=== PATIENT | male | born 1975 | race African-American/Black ===

== ENCOUNTER 2024-01-09 01:09 | Day surgery (SDC) | payer OTHER, SELFPAY ==
[2023-12-21 13:58] VITALS: BMI 28.8
[2024-01-09 10:30] VITALS: BP 114/79; PULSE 84; RESP 19; TEMP 36.2; O2SAT 100
[2024-01-09] MEDS: LACTATED RINGERS 1,000 ML 150 ML IV CONT (10:40)
--- NOTE | 2024-01-09 11:00 | PM.HPGS ---
History of Present Illness History of Present Illness Consent: Risks, benefits, and alternatives have been discussed and questions answered. Patient agrees to proceed with procedure. Chief complaint: neoplasm screening Narrative: Casey Rice is a 48 year old male here for screening colonoscopy, had one in his 20's for blood in stools. Review of Systems Review of Systems: All systems reviewed & are unremarkable except as noted in HPI and below PMFSH Past Medical History Medical History (Updated 01/09/24 @ 11:01 by Howie Johnson MD) Colon cancer screening Social History Social History Living arrangements: with family Spiritual care concerns: No Meds Home Medications and Allergies Home Medications Medication Instructions Recorded Confirmed Type atorvastatin 10 mg tablet 10 mg PO DAILY 12/21/23 01/09/24 History Allergies Allergy/AdvReac Type Severity Reaction Status Date / Time No Known Allergies Allergy Verified 01/09/24 10:28 Vital Signs Vital Signs - 24 hr 01/09/24 10:30 Temperature 97.1 F L Pulse Rate 84 Respiratory Rate 19 Blood Pressure 114/79 Pulse Oximetry 100 Oxygen Delivery Room Air Exam Const: General: comfortable and no acute distress HENMT: Face/Nose/Sinus: Normal nares present Eyes: General: appearance normal, both eyes and all related structures Neck: Neck: no JVD Resp: Auscultation: clear to auscultation bilaterally Cardio: Rate: regular rate Rhythm: regular rhythm GI: Inspection: non-distended GI Palp: Yes Soft to palpation Skin: General skin exam: normal color Neuro: General: gait normal Speech: normal speech Extrem: General: normal to inspection Psych: Mental Status: mental status grossly normal Assessment and Plan Assessment and plan (1) Colon cancer screening: Code(s): Z12.11 - Encounter for screening for malignant neoplasm of colon Status: Acute Assessment and Plan: colonoscopy
--- NOTE | 2024-01-09 11:02 | WPDANESEPPF ---
Anes - Initial Pre Proc Eval Procedure: Operation Date: 01/09/24 11:30 Proposed Procedures p Screening Colonoscopy - Howie Johnson MD Date/Time: 01/09/24 11:02 Surgeon: Howie Johnson MD Pre Op Diagnosis: neoplasm screening Patient Data Age: 48 Gender: M Height: 1.88 m Weight: 100.7 kg Last Vital Signs Temp 36.2 C L 01/09/24 10:30 Pulse 84 01/09/24 10:30 Resp 19 01/09/24 10:30 BP 114/79 01/09/24 10:30 Pulse Ox 100 01/09/24 10:30 O2 Del Method Room Air 01/09/24 10:30 Allergies Allergy/AdvReac Type Severity Reaction Status Date / Time No Known Allergies Allergy Verified 01/09/24 10:28 Home Medications Medication Instructions Recorded Confirmed Type atorvastatin 10 mg tablet 10 mg PO DAILY 12/21/23 01/09/24 History Patient hx anesthesia problems: none Family hx anesthesia problems: none Results Review: All pre-operative results and documents have been reviewed as part of the pre-operative evaluation. [facility] Past Medical History Medical History Colon cancer screening Social History Social History Living arrangements: with family Spiritual care concerns: No Anes - Eval Final PreProcedure Day of Procedure 01/09/24 11:02 Patient weight: overweight Heart: regular rate and rhythm Lungs: clear to auscultation Airway: Mallampati scale class II Neurological: alert and oriented Last oral intake: >/= 8 hours ASA classification: II Emergent: no Anesthetic plan: proceed Anesthesia type and monitoring: general GIVS and standard monitoring Results Review: All pre-operative results and documents have been reviewed as part of the pre-operative evaluation. Informed Consent: The patient's anesthetic plan and its attendant risks and benefits were discussed with the patient/family/POA. Questions were solicited and answers provided to the satisfaction of the patient/family/POA.
[2024-01-09 11:19] VITALS: BP 103/67; PULSE 79; RESP 15; O2SAT 97
[2024-01-09 11:29] VITALS: BP 106/66; PULSE 75; RESP 16; O2SAT 97
[2024-01-09 11:39] VITALS: BP 108/79; PULSE 75; RESP 18; O2SAT 100
== END 2024-01-09 11:55 | disposition home or self-care (01) ==
PROVIDERS: Visit Provider Internal Medicine Gastroenterology
PROC: 0DJD8ZZ Inspection of Lower Intestinal Tract, Via Natural or Artificial Opening Endoscopic (ICD-10-PCS; CPT 45378; principal; 2024-01-09 11:30)
DX: Z12.11 Encounter for screening for malignant neoplasm of colon (principal); K64.8 Other hemorrhoids; K57.30 Diverticulosis of large intestine without perforation or abscess without bleeding
CPT/HCPCS: 45378; J2704; J7120

== ENCOUNTER 2024-05-03 07:06 | Emergency (ER) | payer OTHER, SELFPAY ==
--- NOTE | ~2024-05-03 | XR_ITS ---
XR foot LT min 3V 05/03/2024 08:01 Indication: Left foot pain Procedure: 4 views left foot Comparison: No prior studies for comparison. Findings: There are small degenerative calcaneal enthesophytes. Lisfranc joint intact. No fracture, s ubluxation or dislocation. No focal soft tissue abnormality. Impression: 1: No acute fracture. Reviewed, dictated and finalized at location A. UCTION ANALYST Impression: 1: No acute fracture.
[2024-05-03 07:17] VITALS: BP 151/89; PULSE 81; RESP 16; TEMP 36.6; O2SAT 97
--- NOTE | 2024-05-03 07:46 | ED.GENADULT ---
HPI - General Adult General Chief complaint: Extremity Injury, Lower Stated complaint: left foot pain Time Seen by Provider: 05/03/24 07:08 History of Present Illness HPI narrative: 49-year-old male presenting to the emergency department for evaluation for left foot pain. 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 Patient states he did have off last week but when he started working again on Tuesday and Tuesday he had worsening left lateral foot pain. Patient describes pain that is worsened with ambulation. Related Data Home Medications ?Medication ?Instructions ?Recorded ?Confirmed ?Last Taken ?Type atorvastatin 10 mg tablet 10 mg PO DAILY 12/21/23 01/09/24 01/08/24 History Allergies Allergy/AdvReac Type Severity Reaction Status Date / Time No Known Allergies Allergy Verified 05/03/24 07:23 Review of Systems Review of Systems: All systems reviewed & are unremarkable except as noted in HPI and below PMFSH Past Medical History Medical History Colon cancer screening Social History Social History Living arrangements: with family Spiritual care concerns: No Exam Narrative: APPEARANCE: Well appearing, no pain, no distress, well-nourished. HEAD: normocephalic, atraumatic. EYES: PERRLA/EOMI, conjunctivae clear. NOSE: Normal no drainage EARS:TMS clear with good light reflex. THROAT: Pharynx clear, no exudate. NECK: Supple. No adenopathy, no masses. RESPIRATORY: Airway patent, respirations nonlabored. Clear to auscultation bilaterally, no rales, rhonchi, wheezing. CARDIOVASCULAR: Regular rate and rhythm without murmurs rubs or gallops. ABDOMINAL: Soft, nontender, nondistended, normal bowel sounds MUSCULOSKELETAL: Left lateral tenderness to palpation of foot NEURO: Alert. Cranial nerves II through XII intact. Good gait. Good coordination SKIN: Warm, dry. Normal Color Course Vital Signs Vital signs: Vital Signs Temperature 97.8 F 05/03/24 07:17 Pulse Rate 81 05/03/24 07:17 Respiratory Rate 16 05/03/24 07:17 Blood Pressure 151/89 H 05/03/24 07:17 Pulse Oximetry 97 05/03/24 07:17 Oxygen Delivery Room Air 05/03/24 07:17 Temperature 97.8 F 05/03/24 07:17 Pulse Rate 73 05/03/24 09:15 Respiratory Rate 16 05/03/24 09:15 Blood Pressure 146/92 H 05/03/24 09:15 Pulse Oximetry 100 05/03/24 09:15 Oxygen Delivery Room Air 05/03/24 07:17 Medical Decision Making MDM Narrative Medical decision making narrative: 49-year-old male presenting to the emergency department for evaluation for left lateral foot pain. X-rays were negative for acute fracture dislocation. Patient's pain has been persistent. Patient will be provided Ramón wrap and crutches for limited weight-bearing. Patient was requesting a work note. Patient will have follow-up with primary care physician for additional outpatient imaging. All questions concerns were addressed. Differential Diagnosis Differential Diagnosis: Foot contusion, metatarsal fracture, ligament strain, foot sprain Vital Signs Vital Signs: Vital Signs Temperature 97.8 F 05/03/24 07:17 Pulse Rate 81 05/03/24 07:17 Respiratory Rate 16 05/03/24 07:17 Blood Pressure 151/89 H 05/03/24 07:17 Pulse Oximetry 97 05/03/24 07:17 Oxygen Delivery Room Air 05/03/24 07:17 Temperature 97.8 F 05/03/24 07:17 Pulse Rate 73 05/03/24 09:15 Respiratory Rate 16 05/03/24 09:15 Blood Pressure 146/92 H 05/03/24 09:15 Pulse Oximetry 100 05/03/24 09:15 Oxygen Delivery Room Air 05/03/24 07:17 Imaging Data Radiologist's impression: Impressions Foot X-Ray 05/03/24 08:01 Impression: 1: No acute fracture. Discharge Plan Discharge Clinical Impression: Acute foot pain Patient Disposition: Home, Self-Care Condition: Stable Instructions: Antibiotic Form, Crutch Instructions (ED), Arthralgia (ED) Additional Instructions: Ramón wrap for comfort, crutches for limited weight-bearing. Have close follow-up with Podiatry. Have close follow-up with your primary care physician for additional outpatient imaging. Patient Language: Kiswahili Prescriptions: No Action atorvastatin 10 mg tablet 10 mg PO DAILY Follow-up/Referrals: Arango,Lee Jr., DPM [Physician] - PHYSICIAN,SOFT BOARDER [Non-Staff] - Stand Alone Forms: Work/School Release IP
--- OUTSIDE RECORDS SUMMARY | 2024-05-03 08:49 | XMS_ITS | Patient Health Summary ---
Author Organization [facility] [employer] Address [address] [place] [address] Care Team Providers Care Charge Histotechnologist Name Role Phone Zoila Hurt MD Primary Care Provider [phone] Note from [facility],non-owned Affiliates and Associated Physician Practices is amultiple site organization consisting of ambulatory clinics and hospital sitesin [place], [place], [place] and [place]. This disclosure is being madepursuant to the Care Everywhere program and may not contain all information available regarding this patient. Last updated 17.[facility] Allergies No known active allergies Medications * Be aware that medications may not be up to date on this document. Alwaysverify current medications with the patient. * diazePAM (VALIUM) 5 MG tablet(Started 12/25/2019) Take 5 mg by mouth 2 times daily * ibuprofen (MOTRIN) 600 MG tablet(Started 12/25/2019) Take 600 mg by mouth every 6 hours as needed pain Social History Tobacco Use Types Packs/Day Years Used Date Smoking Tobacco: Never Smokeless Tobacco: Never Alcohol Use Standard Drinks/Week Comments No 0 (1 standard drink = 0.6 oz pur e alcohol) Sex and Gender Information Value Date Recorded Sex Assigned at Not on file Gender Identity Not on file Sexual Orientation Not on file Last Filed Vital Signs Vital Sign Reading Time Taken Comments Blood Pressure 129/83 02/13/2020 10:22 AM BUSINESS LAW INSTRUCTOR Pulse 73 02/13/2020 10:22 AM BUSINESS LAW INSTRUCTOR Temperature 36.9 ??C (98.5 ??F) 02/13/2020 10:[address] Respiratory Rate 18 02/13/2020 10:22 AM BUSINESS LAW INSTRUCTOR Oxygen Saturation 100% 02/13/2020 10:22 AM BUSINESS LAW INSTRUCTOR Inhaled Oxygen Concentration - - Weight 104.3 kg (230 lb) 02/13/2020 10:22 AM BUSINESS LAW INSTRUCTOR Height 188 cm (6' 2 ) 11/30/2014 5:01 PM CDT Body Mass Index 29.53 11/30/2014 5:01 PM CDT Procedures * DERMATOPATHOLOGY(Performed 05/05/2022) Performed for Neoplasm of uncertain behavior of skin * COVID-19 SARS-COV-2 PCR QUAL ([facility])(Performed 02/13/2020) Performed for Close exposure to COVID-19 virus * BASIC METABOLIC PANEL (CALCIUM TOTAL)(Performed 11/30/2014) * CBC W AUTO DIFFERENTIAL(Performed 11/30/2014) * CULTURE STREP GROUP A(Performed 11/30/2014) * STREP A SCREEN DIRECT W RFLX STREP A CULTURE(Performed 11/30/2014) Results * DERMATOPATHOLOGY (05/05/2022 12:00 AM BUSINESS LAW INSTRUCTOR) Case Report Dermatopathology Report ? Case: [id number] ? Authorizing Provider: ??Cooper Siegel, ? Collected: ? 05/05/2022 12:00 AM ? PA-Gem ? Ordering Location: ? [facility] Care DermPath Lab ?Received: ?05/05/2022 04:08 PM ? Pathologist: ? Shira Choi MD ? Specimen: ?Skin, right eyelid: Triangulation: just inferior to R eye lateral canthus ? 5:38 PM [facility] D[facility]MAT[facility] Final Diagnosis Specimen A. 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 Hidrocystoma 5:38 PM [facility]MAT[facility] Gross Description Specimen A: Received is one formalin filled container labeled with the patient's name and designated right eyelid: Triangulation: just inferior to R eye lateral canthus. The specimen consists of a shave biopsy measuring [id number]. Jar 0. 5:38 PM [facility]ERMATOPATH[facility] Microscopic Description Specimen A. SKIN, right eyelid: Triangulation: just inferior to R eye lateral canthus: Within the dermis, there is a space lined by one to several layers of typical epithelial cells that resemble the lining of the normal sweat duct. Additional deeper sections were obtained and reviewed. 5:38 PM [facility] Disclaimer An external and internal positive and negative controls are appropriate for the histochemical, immunohistochemical and immunofluorescence stain(s) in this case (if any), except where stated explicitly. The performance characteristics of the stain(s) cited in this report were developed and its performance characteristic determined by the Dermatopathology Laboratory at [facility], directed by Dr. Pete Zelaya. These tests need not be, and therefore are not, approved by the [place] Food and Drug Administration. The tests are used for clinical purposes. Billing Codes Specimen Charges Stain Charges 65684 1 5:38 PM [facility] Embedded Images 5:38 PM [facility] Pathology/Cytolog y TISSUE SPECIMEN FROM SKIN / Unknown 05/05/2022 05/05/2022 4:08 PM BUSINESS LAW INSTRUCTOR Cooper Siegel PA-C LAB - PATHOLOG Y/CYTOLOGY ORDERABLES DERMATOPATHOLOGY LABORATORY [facility] Department of Dermatology [address], [address] [phone] * COVID-19 SARS-COV-2 PCR QUAL ([facility]) (02/13/2020 12:00 AM BUSINESS LAW INSTRUCTOR) SARS-CoV-2 SARITHA Not Detected Not Detected [facility] ACCOUNT BILL Comment: This nucleic acid amplification test was developed and its performance characteristics determined by [facility]. Nucleic acid amplification tests include PCR and TMA. This test has not been FDA cleared or approved. This test has been authorized by FDA under an Emergency Use Authorization (EUA). This test is only authorized for the duration of time the declaration that circumstances exist justifying the authorization of the emergency use of in vitro diagnostic tests for detection of SARS-CoV-2 virus and/or diagnosis of COVID-19 infection under section 564(b)(1) of the Act, 21 U.S.C. 360bbb-3(b) (1), unless the authorization is terminated or revoked sooner. When diagnostic testing is negative, the possibility of a false negative result should be considered in the context of a patient's recent exposures and the presence of clinical signs and symptoms consistent with COVID-19. An individual without symptoms of COVID-19 and who is not shedding SARS-CoV-2 virus would expect to have a negative (not detected) result in this assay. Microbiology SPECIMEN FROM NASOPHARYNGEAL STRUCTURE / Unknown 02/13/2020 02/13/2020 Narrative Resulting Agency Comment Lab Testing performed at: [facility] [address] [id number] [place] [employer] LAB - MICROBIOL OGY ORDERABLES [facility] ACCOUNT BILL [address] [place] [address] * STREP A SCREEN DIRECT W RFLX STREP A CULTURE (11/30/2014 5:28 PM CDT) Pathologist [facility] Strep A Rapid Negative Negative 11/30/2014 5:43 PM CDT [facility] Microbiology ENTIRE THROAT (SURFACE REGION OF NECK) / Unknown Collection / Unknown 11/30/2014 5:28 PM CDT 11/30/2014 5:33 PM CDT Narrative [facility] - 11/30/2014 5:43 PM CDT Test has reflexed to a Strep A culture. Adelita Rader [facility] - MICROBIOLOGY ORDERABLES Performing Organization Address City/[facility]/ZIP Co de Phone Number [facility] [address] [place] [address] * CULTURE STREP GROUP A (11/30/2014 5:28 PM CDT) [facility] Culture Negative for Beta Hemolytic Streptococcus Group A AL 12/02/2014 4:03 AM CDT [facility] MICROBIOLOGY Microbiology ENTIRE THROAT (SURFACE REGION OF NECK) / Unknown Collection / Unknown 11/30/2014 5:28 PM CDT 11/30/2014 5:33 PM CDT [facility] Rader [facility] - MICROBIOLOGY ORDERABLES [facility] MICROBIOLOGY [address] [phone] * CBC W AUTO DIFFERENTIAL (11/30/2014 5:28 PM CDT) Pathologist [facility] WBC 5.9 4.4 - 10.7 x10^9/L 11/30/2014 5:37 PM CDT [facility] WBC Corrected x10^9/L 11/30/2014 5:37 PM CDT [facility] RBC 4.36 3.80 - 5.40 x10^12/L 11/30/2014 5:37 PM CDT [facility] Hemoglobin 12.4 12.0 - 17.6 gm/dL 11/30/2014 5:37 PM CDT [facility] Hematocrit 38.4 35.2 - 51.7 % 11/30/2014 5:37 PM CDT [facility] MCV 88.1 80.7 - 98.3 fl 11/30/2014 5:37 PM CDT [facility] MCH 28.4 26.7 - 34.0 pg 11/30/2014 5:37 PM CDT [facility] MCHC 32.3 30.8 - 35.9 gm/dL 11/30/2014 5:37 PM CDT [facility] Platelet Count 199 153 - 416 x10^9/L 11/30/2014 5:37 PM CDT [facility] RDW-CV 12.3 12.1 - 14.9 % 11/30/2014 5:37 PM CDT [facility] MPV 10.0 9.4 - 12.9 fl 11/30/2014 5:37 PM CDT [facility] Neutrophils % 52.1 44.0 - 73.0 % 11/30/2014 5:37 PM CDT [facility] Lymphocytes % 37.7 20.0 - 43.0 % 11/30/2014 5:37 PM CDT [facility] Monocytes % 7.1 5.0 - 13.0 % 11/30/2014 5:37 PM CDT [facility] Eosinophils % 2.4 0.0 - 6.0 % 11/30/2014 5:37 PM CDT [facility] Basophils % 0.5 0.0 - 2.0 % 11/30/2014 5:37 PM CDT [facility] Immature Granulocytes 0.2 0 - 1 % 11/30/2014 5:37 PM CDT [facility] Neutrophil Absolute 3.07 2.01 - 7.14 x10^9/L 11/30/2014 5:37 PM CDT [facility] Lymphocytes Absolute 2.22 1.07 - 3.94 x10^9/L 11/30/2014 5:37 PM CDT [facility] Monocytes Absolute 0.42 0.26 - 1.07 x10^9/L 11/30/2014 5:37 PM CDT [facility] Eosinophils Absolute 0.14 0 - 0.47 x10^9/L 11/30/2014 5:37 PM CDT [facility] Basophils Absolute 0.03 0 - 0.08 x10^9/L 11/30/2014 5:37 PM CDT [facility] Immature Granulocytes Absolute 0.01 0.00 - 0.06 x10^9/L 11/30/2014 5:37 PM CDT [facility] Blood BLOOD SPECIMEN / Unknown Venipuncture / Unknown 11/30/2014 5:28 PM CDT 11/30/2014 5:33 PM CDT Adelita Rader [employer] [facility] LAB - HEMATOLOGY O RDERABLES [facility] [address] [place] [address] * BASIC METABOLIC PANEL (CALCIUM TOTAL) (11/30/2014 5:28 PM CDT) [facility] Glucose 105 74 - 106 mg/dL 11/30/2014 5:48 PM CDT [facility] Sodium 141 136 - 145 mmol/L 11/30/2014 5:48 PM CDT [facility] Potassium 3.6 3.5 - 5.1 mmol/L 11/30/2014 5:48 PM CDT [facility] Chloride 105 98 - 107 mmol/L 11/30/2014 5:48 PM CDT [facility] CO2 30 22 - 31 mmol/L 11/30/2014 5:48 PM CDT [facility] Calcium 9.6 8.5 - 10.1 mg/dL 11/30/2014 5:48 PM CDT [facility] Anion Gap 6 5 - 20 mmol/L 11/30/2014 5:48 PM CDT [facility] BUN 9 7 - 21 mg/dL 11/30/2014 5:48 PM CDT [facility] Creatinine 0.86 0.50 - 1.30 mg/dL 11/30/2014 5:48 PM CDT [facility] eGFR by MDRD >60 >60 mL/min/1.7 3m2 11/30/2014 5:48 PM CDT [facility] eGFR by MDRD >60 >60 mL/min/1.7 3m2 11/30/2014 5:48 PM CDT [facility] Blood BLOOD SPECIMEN / Unknown Venipuncture / Unknown 11/30/2014 5:28 PM CDT 11/30/2014 5:33 PM CDT Adelita Rader [employer] LAB - CHEMISTRY OR DERABLES [facility] [address] [place] [address] Care Teams Charge Histotechnologist Relationship Specialty Start Date End Date Zoila Hurt MD PCP - General Family Medicine 02/21/14
--- OUTSIDE RECORDS SUMMARY | 2024-05-03 08:49 | XMS_ITS | Clinical Summary ---
Author Organization [facility] Address [address] [place] [address] Care Team Providers Care Field Artillery Crewmember Name Role Phone Zoila Hurt MD Primary Care Provider [phone] Source Comments [facility],non-owned Affiliates and Associated Physician Practices is amultiple site organization consisting of ambulatory clinics and hospital sitesin [place], [place] and [place]. This disclosure is being madepursuant to the Care Everywhere program and may not contain all information available regarding this patient. Last updated 17.[facility] Allergies No known active allergies Medications * Be aware that medications may not be up to date on this document. Alwaysverify current medications with the patient. Medication Sig Dispensed Refills Start Date End Date Status diazePAM (VALIUM) 5 MG tablet Take 5 mg by mouth 2 times daily 12/25/2019 Active ibuprofen (MOTRIN) 600 MG tablet Take 600 mg by mouth every 6 hours as needed pain 12/25/2019 Active Social History Tobacco Use Types Packs/Day Years [...] Comments Blood Pressure 129/83 02/13/2020 10:22 AM DISTRICT ADMINISTRATIVE ASSISTANT Pulse 73 02/13/2020 10:22 AM DISTRICT ADMINISTRATIVE ASSISTANT Temperature 36.9 ??C (98.5 ??F) 02/13/2020 10:[address] Respiratory Rate 18 02/13/2020 10:22 AM DISTRICT ADMINISTRATIVE ASSISTANT Oxygen Saturation 100% 02/13/2020 10:22 AM DISTRICT ADMINISTRATIVE ASSISTANT Inhaled Oxygen Concentration - - Weight 104.3 kg (230 lb) 02/13/2020 10:22 AM DISTRICT ADMINISTRATIVE ASSISTANT Height 188 cm (6' 2 ) 11/30/2014 5:01 PM CDT Body Mass Index 29.53 11/30/2014 5:01 PM CDT Plan of Treatment Health Maintenance Due Date Last Done Comments COLOGUARD (AGES 45-75) - COL ON CA SCREENING 1974 COLON MONITORING 1974 COLONOSCOPY - COLON CA SCREENING 1974 CT COLONOGRAPHY - COLON CA SCREENING 1974 Colorectal Cancer Screening 1974 FIT - COLON CA SCREENING 1974 FLEX SIG - COLON CA SCREENING 1974 LIPID TESTING 1974 HIV SCREENING 1989 HEPATITIS C SCREENING 03/15/1992 DTAP/TDAP/TD VACCINES (1 - Tdap) 1993 HEPATITIS B VACCINE (1 of 3 - 19+ 3-dose series) 1993 COVID-19 VACCINE ( - 2023-2 5 season) 2023 INFLUENZA VACCINE (#1) 2023 PNEUMOCOCCAL VACCINE 50+ (1 of 1 - PCV) 2024 ZOSTER VACCINE (1 of 2) 2024 DEPRESSION SCREENING 04/04/2024 HIB VACCINE Aged Out No longer eligi ble based on patient's age to complete this topic HPV VACCINE Aged Out No longer eligi ble based on patient's age to complete this topic MENINGOCOCCAL (Group B) VACCINE Aged Out No longer eligible based on patient's age to complete this topic MENINGOCOCCAL VACCINE Aged Out No reddy leonora eligible based on patient's age to complete this topic PNEUMOCOCCAL VACCINE Aged Out No long er eligible based on patient's age to complete this topic Care Teams Field Artillery Crewmember Relationship Specialty Start Date End Date Zoila Hurt MD PCP - General Family Medicine 02/21/14
--- OUTSIDE RECORDS SUMMARY | 2024-05-03 08:49 | XMS_ITS | Clinical Summary ---
Author Organization [facility] [address] [place] [id number] Care Team Providers Care Cube Cutter Name Role Phone Abiel Gaxiola MD Primary Care Provid er Allergies No known active allergies Medications oxyCODONE-aceta minophen (PERCOCET) 5-325 mg per tabletIndicatio ns:Pain Take 1-2 tablets by mouth every 6 (six) hours as needed for pain. 12 tablet 9 Active Additional Information Patient not taking.Reported on 01/03/2020 docusate sodium (COLACE) 100 mg capsuleIndicati ons:constipatio n Take 1 capsule (100 mg total) by mouth 2 (two) times a day. 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 Cervical strain 01/03/2020 Acute pain of right shoulder 12/25/2019 Strain of right shoulder 12/25/2019 Muscle spasm 12/25/2019 Genital herpes 05/08/2012 Surgical History Surgery Date Site/Laterality Comments ANKLE SURGERY APPENDECTOMY 04/04/2018 - 04/03/2019 Family History Medical History Relation Name Comments No Known Problems Father Hypertension Mother Relation Name Status Comments Father Mother Alive Social History Tobacco Use Types Packs/Day Years Used Date Smoking Tobacco: Former Cigarettes Smokeless Tobacco: Never Alcohol Use Standard Drinks/Week Comments No 0 (1 standard drink = 0.6 oz pur e alcohol) Personal Safety Answer Date Recorded Getting School Help Needed Not on file 06/16 Sex and Gender Information Value Date Recorded Sex Assigned at Not on file Legal Sex Male 7:09 PM LIQUOR RECTIFIER Gender Identity Not on file Sexual Orientation Not on file 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 [employer] Not on file Not on file Not on file Obstetrics History Last Filed Vital Signs Vital Sign Reading Time Taken Comments Blood Pressure 120/84 01/03/2020 8:25 AM CDT Pulse 73 12/25/2019 7:08 AM CDT Temperature 36.3 ??C (97.3 ??F) 01/03/2020 8:25 AM CD T temporal Respiratory Rate 16 12/25/2019 7:08 AM CDT Oxygen Saturation 100% 12/25/2019 7:08 AM CDT Inhaled Oxygen Concentration - - Weight 105.7 kg (233 lb) 01/03/2020 8:25 AM CDT Height 188 cm (6' 2.02 ) 01/03/2020 8:25 AM CDT Body Mass Index 29.9 01/03/2020 8:25 AM CDT Plan of Treatment Not on file Insurance [facility] CHOICE PLUS [id number] CHOICE PLUS Advance Directives For more information, please contact: [phone] * Full Code (Latest Code Status on File) Date Activated Date Inactivated Comments 04/28/2018 9:32 AM 04/29/2018 7:39 PM Healthcare Agents on File Name Relationship Healthcare Agent [facility] p Communication Juli Rice Spouse Health Care Agent Care Teams Cube Cutter Relationship Specialty Start Date End Date Abiel Gaxiola MD PCP - General 04/28/18
--- OUTSIDE RECORDS SUMMARY | 2024-05-03 08:49 | XMS_ITS | Clinical Summary ---
Author Organization [facility] Address [address] [place] [address]. [place], [place] [address] [place] [address] Care Team Providers Care Automotive Diagnostic Technician Name Role Phone Abiel Gaxiola MD Primary Care Provider [phone] Medications atorvastatin (LIPITOR) 10 MG tablet Take 1 tablet (10 mg total) by mouth daily. 04/13/2023 Active Acetaminophen (TYLENOL) 160 MG chewable tablet Chew 1 tablet (160 mg total) by mouth every 4 (four) hours as needed for Pain. Active Family History Medical History Relation Comments Diabetes Maternal Grandmother Stroke Maternal Grandmother Hypertension Mother Relation Status Comments Maternal Grandmother Mother Social History Tobacco Use Types Packs/Day Years Used Date Smoking Tobacco: Never Passive Smoke Exposure: Never Smokeless Tobacco: Never Tobacco Cessation:Counseling Given: No Alcohol Use Standard Drinks/Week Comments Never 0 (1 standard drink = 0.6 oz pur e alcohol) PHQ-2 Answer Date Recorded Patient Health Questionnaire-2 Score 0 05/17/2023 Sex and Gender Information Value Date Recorded Sex Assigned at Not on file 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 Gender Identity Not on file Sexual Orientation Not on file Last Filed Vital Signs Vital Sign Reading Time Taken Comments Blood Pressure 130/70 05/17/2023 3:39 PM CANE SPLICER Pulse 88 05/17/2023 3:08 PM CANE SPLICER Temperature - - Respiratory Rate - - Oxygen Saturation 97% 05/17/2023 3:08 PM CANE SPLICER Inhaled Oxygen Concentration - - Weight 102.1 kg (225 lb) 05/17/2023 3:08 PM CANE SPLICER Height - - Body Mass Index - - Plan of Treatment Health Maintenance Due Date Last Done Comments Colorectal Cancer Screening Colonoscopy (10 Years) 1974 Annual Physical 1977 Hepatitis C 1992 DTaP, Tdap and Td Vaccines ( 1 - Tdap) 1993 Hepatitis B Vaccines (1 of 3 - 19+ 3-dose series) 1993 COVID-19 Vaccine (2 - 2023-2 5 season) 2023 12/23/2021 Influenza Adult (#1) 2024 Zoster Vaccines (1 of 2) 2024 PHQ-2 (Physician [place]) 04/04/2024 05/17/2023 PHQ-2 (Physician [place]) 05/17/2024 05/17/2023 Meningococcal B Vaccine Aged Out No l onger eligible based on patient's age to complete this topic Meningococcal Vaccine Aged Out No reddy leonora eligible based on patient's age to complete this topic Pneumococcal Vaccine: Pediat rics (0 to 5 Years) and At-Risk Patients (6 to 64 Years) Aged Out No longer eligi ble based on patient's age to complete this topic RSV Immunizations Under 20 Months Aged Out No longer eligible based on patient's age to complete this topic Insurance Care Teams Automotive Diagnostic Technician Relationship Specialty Start Date End Date Abiel Gaxiola MD [address] [place] [address] PCP - General INTERNAL MEDICINE 04/28/23
--- OUTSIDE RECORDS SUMMARY | 2024-05-03 08:49 | XMS_ITS | Referral Summary ---
Author Organization [facility] Address [address] [place] [address] Care Team Providers Care Monument Setter Name Role Phone Zoila Hurt MD Primary Care Provider [phone] Source Comments [facility],non-owned Affiliates and Associated Physician Practices is amultiple site organization consisting of ambulatory clinics and hospital sitesin [place], [place], [place] and [place]. This disclosure is being madepursuant to the Care Everywhere program and may not contain all information available regarding this patient. Last updated 17.[facility] Allergies No known active allergies Medications * [...] Comments Blood Pressure 129/83 02/13/2020 10:[address] Pulse 73 02/13/2020 10:[address] Temperature 36.9 ??C (98.5 ??F) 02/13/2020 10:[address] Respiratory Rate 18 02/13/2020 10:[address] Oxygen Saturation 100% 02/13/2020 10:[address] Inhaled Oxygen Concentration - - Weight 104.3 kg (230 lb) 02/13/2020 10:[address] Height 188 cm (6' 2 ) 11/30/2014 5:01 PM CDT Body Mass Index 29.53 11/30/2014 5:01 PM CDT Plan of Treatment Not on file Care Teams Monument Setter Relationship Specialty Start Date End Date Zoila Hurt MD PCP - General Family Medicine 02/21/14
--- OUTSIDE RECORDS SUMMARY | 2024-05-03 08:49 | XMS_ITS | Referral Summary ---
Author Organization [facility] Physician Of [facility] [address] [place] [phone] Care Team Providers Care Cooker Sulfate Name Role Phone Abiel Gaxiola MD Primary [...] 12/25/2019 Muscle spasm 12/25/2019 Genital herpes 05/08/2012 Social History Tobacco Use Types Packs/Day Years Used Date Smoking Tobacco: Former Cigarettes Smokeless Tobacco: Never Alcohol Use Standard Drinks/Week Comments No 0 (1 standard drink = 0.6 oz pur e alcohol) Personal Safety Answer Date Recorded Getting School Help Needed Not on file 06/16 Sex and Gender Information Value Date Recorded Sex Assigned at Not on file 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 CHOICE PLUS [facility]/PPO Address: [facility] [address] [place] [address] [facility] CHOICE PLUS [facility] H[facility]/PPO Address: [facility] [address] [place] [address] Advance Directives For more information, please contact: [phone] * Full Code (Latest Code Status on File) Date Activated Date Inactivated Comments 04/28/2018 9:32 AM 04/29/2018 7:39 PM Healthcare Agents on File Name Relationship Healthcare Agent Relationshi p Communication Juli Rice Spouse Health Care Agent Care Teams Cooker Sulfate Relationship Specialty Start Date End Date Abiel Gaxiola MD PCP - General 04/28/18
--- OUTSIDE RECORDS SUMMARY | 2024-05-03 08:49 | XMS_ITS | Clinical Summary ---
Author Organization [facility] Address [address] [place] [address] Phone Care Team Providers Care Construction Project Mgr Name Role Phone Zoila Hurt MD Primary Care Provider Allergies No known active allergies Medications No known medications Active Problems Problem Noted Date Diagnosed Date Genital herpes 05/08/2012 Encounters Date Type Department Care Team Description 04/26/2024 External Device Data [facility] Provider, Abstract 04/25/2024 External Device Data [facility] Provider, Abstract 04/24/2024 External Device Data [facility] Provider, Abstract 04/17/2024 External Device Data [facility] Provider, Abstract 04/12/2024 12:20 PM CIRCUS ARTIST [facility] [place] [address] [address] [place] [address] Jannette Vasquez MD Pain; Swelling 2024 External Device Data [facility] Provider, Abstract 03/14/2024 2:00 PM CIRCUS ARTIST Ancillary Procedure [address] [address] [place] [address] Jannette Vasquez MD Hypertension, unspecified type from Last 3 Months Immunizations Immunization Administration Dates Next Due Skin Test TB 04/29/2012,04/19/2011 Social History Tobacco Use Types Packs/Day Years Used Date Smoking Tobacco: Never Alcohol Use Standard Drinks/Week Comments Not Asked 0 (1 standard drink = 0.6 oz pur e alcohol) Sex and Gender Information Value Date Recorded Sex Assigned at Not on file Legal Sex Male 6:04 AM CIRCUS ARTIST Gender Identity Not on file Sexual Orientation Not on file Last Filed Vital Signs Vital Sign Reading Time Taken Comments Blood Pressure 128/86 04/27/2012 4:34 PM CIRCUS ARTIST Pulse 76 04/27/2012 4:34 PM CIRCUS ARTIST Temperature 36.6 ??C (97.8 ??F) 04/29/2012 9:14 AM CS T Respiratory Rate 16 04/27/2012 4:34 PM CIRCUS ARTIST Oxygen Saturation 97% 11/17/2011 10:53 AM CDT Inhaled Oxygen Concentration - - Weight 97.1 kg (214 lb) 04/27/2012 4:34 PM CIRCUS ARTIST Height 188 cm (6' 2 ) 04/27/2012 4:34 PM CIRCUS ARTIST Body Mass Index 27.48 04/27/2012 4:34 PM CIRCUS ARTIST Plan of Treatment Health Maintenance Due Date Last Done Comments Pre-Diabetes and Diabetes Screening 1974 DTAP/TDAP/TD VACCINES (1 - Tdap) 1993 HEPATITIS B VACCINES (1 of 3 - 19+ 3-dose series) 1993 COLORECTAL SCREENING 2019 Colorectal Cancer Screening 2019 FIT-DNA Q 3 years 2019 FIT/FOBT Q 1 year 2019 Flex Sig/CT Colonography Q 5 years 2019 INFLUENZA VACCINE (#1) 2023 ZOSTER VACCINE (1 of 2) 2024 PNEUMOCOCCAL VACCINE 0-64 YEARS Aged Out No longer eligible based on patient's age to complete this topic Procedures Procedure Name Priority Date/Time Associated Diagnosis Comments XR FOOT 3+ VW LEFT Routine 04/12/2024 12 :35 PM CIRCUS ARTIST Pain Swelling XR CHEST PA AND LATERAL 2 VW Routine 03/14/2024 2:13 PM CIRCUS ARTIST Hypertension, unspecified type from Last 3 Months Results * XR FOOT 3+ VW LEFT (04/12/2024 12:35 PM CIRCUS ARTIST) Anatomical Region Laterality Modality Ankle / Foot Computed Radiogr aphy 04/12/2024 12:3 6 PM CIRCUS ARTIST Impressions 04/12/2024 12:52 PM CIRCUS ARTIST IMPRESSION: 1. ??No evidence of acute or healing fracture. ??If there is concern for early developing stress fracture, MRI would be helpful for further evaluation. 2. ??Small left heel spur. 3. ??Left foot and ankle osteoarthritis, as described above. Narrative 04/12/2024 12:52 PM CIRCUS ARTIST EXAM: ?? XR FOOT 3+ VW LEFT DATE: ??04/12/2024 ?? CLINICAL HISTORY: ? Left foot pain and swelling TECHNIQUE: ?? Weightbearing dorsoplantar, lateral and oblique views of the left foot were submitted for review. ??No prior study is available for comparison. ?? FINDINGS: ?? Bony alignment is normal. ??There is mild angle osteoarthritis without evidence of effusion. ??There is mild 1st through 5th tarsometatarsal joint osteoarthritis and mild osteoarthritis of the joints between the navicular and cuneiforms. ?? There is mild talonavicular and calcaneocuboid osteoarthritis. ??There is minimal 1st metatarsophalangeal and mild sesamoidometatarsal osteoarthritis. ??There is no acute or healing fracture. ??A small heel spur is present. ??A small os peroneum is present. ??Heterotopic ossification is present at the insertion of the Achilles tendon on the calcaneus. Procedure Note Yumiko Durham MD - 04/12/2024 EXAM: XR FOOT 3+ VW LEFT DATE: 04/12/2024 CLINICAL HISTORY: Left foot pain and swelling TECHNIQUE: Weightbearing dorsoplantar, lateral and oblique views of the left foot were submitted for review. No prior study is available for comparison. FINDINGS: Bony alignment is normal. There is mild angle osteoarthritis without evidence of effusion. There is mild 1st through 5th tarsometatarsal joint osteoarthritis and mild osteoarthritis of the joints between the navicular and cuneiforms. There is mild talonavicular and calcaneocuboid osteoarthritis. There is minimal 1st metatarsophalangeal and mild sesamoidometatarsal osteoarthritis. There is no acute or healing fracture. A small heel spur is present. A small os peroneum is present. Heterotopic ossification is present at the insertion of the Achilles tendon on the calcaneus. IMPRESSION: 1. No evidence of acute or healing fracture. If there is concern for early developing stress fracture, MRI would be helpful for further evaluation. 2. Small left heel spur. 3. Left foot and ankle osteoarthritis, as described above. us Jannette Vasquez MD DIAGNOSTIC IMAGING ORDERABLES Fi nal Result * XR CHEST PA AND LATERAL 2 VW (03/14/2024 2:13 PM CIRCUS ARTIST) Anatomical Region Laterality Modality Chest Computed Radiogr aphy 03/14/2024 2:13 PM CIRCUS ARTIST Impressions 03/14/2024 3:12 PM CIRCUS ARTIST IMPRESSION: ??No active disease. Narrative 03/14/2024 3:12 PM CIRCUS ARTIST INDICATION: ??Hypertension. There are mild degenerative changes scattered throughout the thoracic spine. The heart is normal in size. No aortic vascular calcification is identified. The lungs are clear. Procedure Note Raul Poon MD - 03/14/2024 INDICATION: Hypertension. There are mild degenerative changes scattered throughout the thoracic spine. The heart is normal in size. No aortic vascular calcification is identified. The lungs are clear. IMPRESSION: No active disease. Jannette Vasquez MD DIAGNOSTIC IMAGING ORDERABLES Fi nal Result from Last 3 Months Insurance [facility] Address: [facility] [id number] [place] [address] Care Teams Construction Project Mgr Relationship Specialty Start Date End Date Zoila Hurt MD PCP - General Family Practice 01/19/11
[2024-05-03 09:15] VITALS: BP 146/92; PULSE 73; RESP 16; O2SAT 100
== END 2024-05-03 09:18 | disposition home or self-care (01) ==
PROVIDERS: Emergency Provider Emergency Medicine
DX: M79.672 Pain in left foot (principal)
CPT/HCPCS: 73630; 99283

== ENCOUNTER 2025-03-10 09:46 | Emergency (ER) | payer OTHER, SELFPAY ==
[2025-03-10] VITALS (8 sets, daily range): BP systolic 125–137; BP diastolic 85–91; PULSE 67–88; RESP 14–16; O2SAT 94–98
--- NOTE | ~2025-03-10 | XR_ITS ---
Examination: XR chest 2V Clinical History: bilateral chest pain, pt states feels like glass in chest Comparison: None Technique: PA and Lateral Findings: Cardiomediastinal silhouette normal size and configuration. Lungs clear. No acute bony abnormality. IMPRESSION: 1. No acute cardiopulmonary findings. Reviewed, dictated and finalized at location R. [employer] [facility]
--- NOTE | 2025-03-10 09:48 | ECG_ITS ---
Test Date: 2025-03-10 10:03:45 Measurements Intervals [place] Rate: 79 P: 45 NH: 166 QRS: 73 QRSD: 86 T: 85 QT: 356 QTc: 409 Interpretive Statements SINUS RHYTHM NONSPECIFIC T-WAVE ABNORMALITY- HIGH LATERAL LEADS BASELINE ARTIFACT- I, II, AVR BORDERLINE ECG No previous ECG available for comparison Electronically Signed On 03-10-2025 19:19:01 MANAGER INTEGRITY by Michele Arias D.O.
--- OUTSIDE RECORDS SUMMARY | 2025-03-10 09:48 | XMS_ITS | Clinical Summary ---
Author Organization [facility] [employer] Address [address] [place] [address] Care Team Providers Care Jai Alai Player Name Role Phone Zoila Hurt MD Primary Care Provider [phone] Source Comments [facility] [employer],non-owned Affiliates and Associated Physician Practices is amultiple site organization consisting of ambulatory clinics and hospital sitesin [place], [place], [place] and [place]. This disclosure is being madepursuant to the Care Everywhere program and may not contain all information available regarding this patient. Last updated 17.[facility] [employer] Allergies No known active allergies Medications * Be aware that medications may not be up to date on this document. Alwaysverify current medications with the patient. diazePAM (VALIUM) 5 MG tablet Take 5 [...] at Not on file Legal Sex Male 6:45 PM DIRECTOR OF QUALITY Gender Identity Not on file Sexual Orientation Not on file Last Filed Vital Signs Vital Sign Reading Time Taken Comments Blood Pressure 129/83 02/13/2020 10:22 AM DIRECTOR OF QUALITY Pulse 73 02/13/2020 10:22 AM DIRECTOR OF QUALITY Temperature 36.9 C (98.5 F) 02/13/2020 10:22 AM DIRECTOR OF QUALITY Respiratory Rate 18 02/13/2020 10:22 AM DIRECTOR OF QUALITY Oxygen Saturation 100% 02/13/2020 10:22 AM DIRECTOR OF QUALITY Inhaled Oxygen Concentration - - Weight 104.3 kg (230 lb) 02/13/2020 10:22 AM DIRECTOR OF QUALITY Height 188 cm (6' 2) 11/30/2014 5:01 PM CDT Body Mass Index [...] of 3 - 19+ 3-dose series) 1993 PNEUMOCOCCAL VACCINE 50+ (1 of 1 - PCV) 2024 ZOSTER VACCINE (1 of 2) 2024 DEPRESSION SCREENING 04/04/2024 COVID-19 VACCINE (1 - 2024-2 6 season) 2024 INFLUENZA VACCINE (#1) 2024 HIB VACCINE Aged Out No longer eligi ble based on patient's age to complete this topic HPV VACCINE Aged Out No longer eligi ble based on patient's age to complete this topic MENINGOCOCCAL (Group B) VACC INE SHARED DECISION-MAKING Aged Out No longer eligibl e based on patient's age to complete this topic MENINGOCOCCAL GROUPS A/C/Y/W VACCINE Aged Out No longer eligible b ased on patient's age to complete this topic Insurance [facility] Care Teams Jai Alai Player Relationship Specialty Start Date End Date Zoila Hurt MD PCP - General Family Medicine 02/21/14
--- OUTSIDE RECORDS SUMMARY | 2025-03-10 09:48 | XMS_ITS | Clinical Summary ---
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 CHOICE PLUS [facility] HMO/PPO Address: [facility] [address] [place] [address] [facility] CHOICE [facility]US [facility] HMO/PPO Address: [place] [address] Advance Directives For more information, please contact: [phone] * Full Code (Latest Code Status on File) Date Activated Date Inactivated Comments 04/28/2018 9:32 AM 04/29/2018 7:39 PM Healthcare Agents on File Name Relationship Healthcare Agent Relationshi p Communication Juli Rice Spouse Health Care Agent Care Teams Staff Genetic Counselor Relationship Specialty Start Date End Date Abiel Gaxiola MD PCP - General 04/28/18
--- OUTSIDE RECORDS SUMMARY | 2025-03-10 09:48 | XMS_ITS | Clinical Summary ---
Author Organization [facility] Address [facility] [place] [address] Care Team Providers Care Gasoline Locomotive Crane Operator Name Role Phone Abiel Gaxiola MD Primary Care Provider Medications atorvastatin (LIPITOR) 10 MG tablet Take [...] on file Legal Sex Male 6:07 AM ROUSTABOUT HEAD Gender Identity Not on file Sexual Orientation Not on file Last Filed Vital Signs Vital Sign Reading Time Taken Comments Blood Pressure 130/70 05/17/2023 3:39 PM ROUSTABOUT HEAD Pulse 88 05/17/2023 3:08 PM ROUSTABOUT HEAD Temperature - - Respiratory Rate - - Oxygen Saturation 97% 05/17/2023 3:08 PM ROUSTABOUT HEAD Inhaled Oxygen Concentration - - Weight 102.1 kg (225 lb) 05/17/2023 3:08 PM ROUSTABOUT HEAD Height - - Body Mass Index - - Plan of Treatment Health Maintenance Due Date Last Done Comments Colorectal Cancer Screening Colonoscopy (10 Years) 1974 Annual Physical 1977 Hepatitis C 1992 DTaP, Tdap and Td Vaccines ( 1 - Tdap) 1993 Hepatitis B Vaccines (1 of 3 - 19+ 3-dose series) 1993 Pneumococcal Vaccine: 50+ Ye ars (1 of 1 - PCV) 2024 Zoster Vaccines (1 of 2) 2024 PHQ-2 (Physician [place]) 04/04/2024 05/17/2023 COVID-19 Vaccine (2 - 2024-2 6 season) 2024 12/23/2021 Influenza Adult (#1) 2025 Hepatitis A Vaccines Aged Out No long er eligible based on patient's age to complete this topic Meningococcal B Vaccine Aged Out No l onger eligible based on patient's age to complete this topic Meningococcal Vaccine Aged Out No reddy leonora eligible based on patient's age to complete this topic RSV Immunizations Under 20 Months Aged Out No longer eligible based on patient's age to complete this topic Insurance Care Teams Gasoline Locomotive Crane Operator Relationship Specialty Start Date End Date Abiel Gaxiola MD [address] [place] [address] PCP - General INTERNAL MEDICINE 04/28/23
[2025-03-10] MEDS: ASPIRIN 81 MG CHEWABLE TABLET 324 MG PO (10:04)
[2025-03-10 10:14] LABS: Hematocrit 45.2 % (42.0-52.0); Hemoglobin 14.4 g/dL (14.0-18.0); Immature Granulocyte Percent A 0.2 % (0-0.5); Lymphocytes Absolute Auto 1.78 K/mm3 (0.9-3.2); Mean Corpuscular HGB Conc 31.9 g/dl (32-36); Mean Corpuscular Hemoglobin 28.6 pg (26-34); Mean Corpuscular Volume 89.9 fl (80-100); Nucleated Red Blood Cells Absolute Auto 0.000 K/mm3 (0.0-0.012); Nucleated Red Blood Cells Perc 0.0 % (0.0-0.2); Platelet Count Result 218 k/mm3 (150-375); Red Blood Count 5.03 M/mm3 (4.6-6.20); White Blood Count 5.1 K/mm3 (4.5-10.0)
[2025-03-10 10:26] LABS: INR 1.0; Prothrombin Time 13.0 Seconds (11.1-14.7)
[2025-03-10 10:27] LABS: Alanine Aminotransferase 43 U/L (6-50); Albumin Level 4.4 g/dL (3.5-5.1); Alkaline Phosphatase 53 U/L (38-126); Anion Gap 7 mmol/L (4-12); Aspartate Amino Transferase 44 U/L (17-59); Bilirubin,Total 0.8 mg/dL (0.2-1.3); Blood Urea Nitrogen 9 mg/dL (9-20); Calcium 9.4 mg/dL (8.4-10.2); Carbon Dioxide 28 mmol/L (22-30); Chloride 104 mmol/L (98-107); Estimated CRCL calculation 93 ml/min; Estimated Glomerular Filt Rate > 60; Glucose 113 mg/dL (65-110); Lipase 61 U/L (23-300); Partial Thromboplastin Time 29.0 Seconds (22.3-36.8); Potassium 4.0 mmol/L (3.4-5.0); Sodium 139 mmol/L (137-145); Total Protein 8.5 g/dL (6.3-8.2)
[2025-03-10 10:38] LABS: Troponin I < 0.012 ng/mL (0.000-0.034)
--- NOTE | 2025-03-10 14:22 | ED_ITS ---
HPI - Chest Pain General Chief Complaint: Chest Pain Stated Complaint: chest pain Time Seen by Provider: 03/10/25 09:57 History of Present Illness HPI narrative: Patient started having a runny nose and sore throat, then developed a cough, when he takes deep breaths and coughs he has some pain to his chest. Related Data Home Medications ?Medication ?Instructions ?Recorded ?Confirmed ?Last Taken ?Type atorvastatin 10 mg tablet 10 mg PO DAILY 12/21/23 100 10/2501/08/24 History Allergies Allergy/AdvReac Type Severity Reaction Status Date / Time No Known Allergies Allergy Verified 03/10/25 10:09 Review of Systems 2 Review of Systems: All systems reviewed & are unremarkable except as noted in HPI and below PMFSH Past Medical History Medical History Colon cancer screening Social History Social History Living arrangements: with family Spiritual care concerns: No Exam 2 Narrative: EXAMINATION OF ORGAN SYSTEMS/BODY AREAS: Constitutional: Vital signs per nursing GENERAL:[No acute distress, non-toxic appearing.] HEAD: Normal with no signs of head trauma. EYES: EOMI, conjunctiva normal ENT: Nasal congestion LUNGS: Nonlabored breathing. Clear to auscultation bilaterally HEART: [Regular rate and rhythm] ABD: [Soft], [nontender to palpation] EXT: Normal range of motion SKIN: [No rashes or lesions.] NEURO: [Alert. No gross focal sensory or strength deficits.] PSYCH: Normal affect Course Vital Signs Vital signs: Vital Signs Pulse Rate 88 03/10/25 10:08 Pulse Oximetry 97 03/10/25 10:08 Oxygen Delivery Room Air 03/10/25 10:08 Pulse Rate 67 03/10/25 12:01 Respiratory Rate 15 03/10/25 12:01 Blood Pressure 125/85 03/10/25 12:01 Pulse Oximetry 96 03/10/25 12:01 Oxygen Delivery Room Air 03/10/25 10:09 MDM MDM Narrative Medical decision making narrative: ED COURSE AND MEDICAL DECISION MAKING: This 49- year old patient presents with symptoms most suggestive of viral upper respiratory tract infection. Lungs are clear bilaterally without any respiratory distress or accessory muscle use. As he was having some chest pain, chest pain workup initiated. EKG - 12-Lead: Performed at 1003. Interpreted by me. [Sinus rhythm]. Rate 79. [Normal] axis. DE-interval [normal]. QRS duration [normal]. QTc [normal]. [No ST segment elevation or depression]. [T-wave normal]. Impression: No EKG evidence of acute ischemia or dysrhythmia. Chest x-ray is clear. Labs including troponin are negative. He will be discharged home in stable condition with expectant management. He is asking for work note which I will provide, as well as prescriptions for symptomatic management. Return precautions were provided. Differential Diagnosis Differential Diagnosis: URI, ACS, pneumonia, pneumothorax, etc. Lab Data 03/10/25 10:01 03/10/25 10:01 Labs: Lab Results 03/10/25 Range/Units 10:01 WBC 5.1 (4.5-10.0) K/mm3 RBC 5.03 (4.6-6.20) M/mm3 Hgb 14.4 (14.0-18.0) g/dL Hct 45.2 (42.0-52.0) % MCV 89.9 (80-100) fl MCH 28.6 (26-34) pg MCHC 31.9 L (32-36) g/dl RDW 12.2 (11.5-14.5) % Plt Count 218 (150-375) k/mm3 MPV 9.9 (7.4-10.4) fl Immature Gran % (Auto) 0.2 (0-0.5) % Neut % (Auto) 51.5 (45.5-73.1) % Lymph % (Auto) 34.8 (18.3-44.2) % [place] % (Auto) 9.2 H (2.6-8.5) % Eos % (Auto) 3.5 (0-4.4) % Baso % (Auto) 0.8 (0.2-1.2) % Lymph # (Auto) 1.78 (0.9-3.2) K/mm3 [place] # (Auto) 0.5 (0.1-0.6) K/mm3 Eos # (Auto) 0.2 (0-0.3) K/mm3 Baso # (Auto) 0.0 (0.0-0.1) K/mm3 Abs Immat Gran (auto) 0.01 (0.00-0.031) K/mm3 Absolute Neuts (auto) 2.6 (1.3-6.7) K/mm3 Absolute Nucleated RBC 0.000 (0.0-0.012) K/mm3 Nucleated RBC % 0.0 (0.0-0.2) % PT 13.0 (11.1-14.7) Seconds INR 1.0 APTT 29.0 (22.3-36.8) Seconds Sodium 139 (137-145) mmol/L Potassium 4.0 (3.4-5.0) mmol/L Chloride 104 (98-107) mmol/L Carbon Dioxide 28 (22-30) mmol/L Anion Gap 7 (4-12) mmol/L BUN 9 (9-20) mg/dL Creatinine 0.98 (0.7-1.3) mg/dL Estim Creat Clear Calc 93 ml/min Estimated GFR > 60 (59 - ) Glucose 113 H (65-110) mg/dL Calcium 9.4 (8.4-10.2) mg/dL Total Bilirubin 0.8 (0.2-1.3) mg/dL AST 44 (17-59) U/L ALT 43 (6-50) U/L Alkaline Phosphatase 53 (38-126) U/L Troponin I < 0.012 (0.000-0.034) ng/mL Total Protein 8.5 H (6.3-8.2) g/dL Albumin 4.4 (3.5-5.1) g/dL Lipase 61 (23-300) U/L Imaging Data Radiologist's impression: ITS Impressions Chest X-Ray 03/10/25 10:27 IMPRESSION: 1. No acute cardiopulmonary findings. Discharge Plan Discharge Clinical Impression: URI (upper respiratory infection) Patient Disposition: Home Condition: Stable Instructions: Upper Respiratory Infection (ED) Additional Instructions: Your labs and x-rays today are thankfully normal. You can try the medications as prescribed, and follow up with your primary care doctor. If your symptoms worsen, return to the ER. Patient Language: Slovenian Prescriptions: New acetaminophen [Tylenol Extra Strength] 500 mg tablet 1,000 mg PO Q6H PRN (Reason: pain) Qty: 50 0RF fluticasone propionate [Allergy Relief (fluticasone)] 50 mcg/actuation spray,suspension 1 spray intranasal DAILY Qty: 16 0RF Rx Instructions: administer into each nostril benzonatate 200 mg capsule 200 mg PO BID PRN (Reason: cough) Qty: 20 0RF ibuprofen 400 mg tablet 400 mg PO TID PRN (Reason: pain) Qty: 30 0RF No Action atorvastatin 10 mg tablet 10 mg PO DAILY Follow-up/Referrals: Christina,Jannette [Other] Stand Alone Forms: Work/School Release IP
== END 2025-03-10 12:08 | disposition home or self-care (01) ==
PROVIDERS: Emergency Medicine; Emergency Provider Emergency Medicine
DX: J06.9 Acute upper respiratory infection, unspecified (principal)
CPT/HCPCS: 36415; 71046; 80053; 83690; 84484; 85025; 85610; 85730; 93005; 99284; A9270